=== PATIENT | male | born 1960 | race Hispanic/Latino ===

== ENCOUNTER 2018-03-15 06:41 | Day surgery (SDC) | payer MEDICARE ==
[2018-03-12 09:54] VITALS: BMI 37.6
[2018-03-15] MEDS ORDERED: Etomidate 20 mg/10ml Inj IV ONE (08:10)
[2018-03-15] MEDS ORDERED: Propofol 10 mg/ml Inj (20 ML) ONE ×3 (08:10→08:59)
[2018-03-15] MEDS ORDERED: Sodium Chloride 0.9% 1,000 ML IV SCH (09:15)
[2018-03-15 09:26] VITALS: PULSE 66
[2018-03-15 13:26] VITALS: BP 110/68; RESP 18; TEMP 98.5; O2SAT 99
== END 2018-03-15 10:45 | disposition home or self-care (01) ==
LOC: ENDO 06:41
PROVIDERS: ATTEND Specialist
DX: K62.1 Rectal polyp (principal); D12.3 Benign neoplasm of transverse colon; D12.4 Benign neoplasm of descending colon; K57.90 Diverticulosis of intestine, part unspecified, without perforation or abscess without bleeding; G89.29 Other chronic pain; I10 Essential (primary) hypertension; I25.10 Atherosclerotic heart disease of native coronary artery without angina pectoris; F17.210 Nicotine dependence, cigarettes, uncomplicated
CPT/HCPCS: 45380; 45385; 88305; J2001; J2704; J3010; J7030; J7040